=== PATIENT | male | born 1950 | race Caucasian/White ===

== ENCOUNTER 2016-12-05 21:07 | Inpatient (IN) | payer OTHER ==
[~2016-12-05] VITALS: Ht 175.3 cm; Wt 102.8 kg
[~2016-12-05 21:07] MED LIST: ARTHROTEC 501 TABLET PO; CRESTOR10 MG PO; FLEXERIL10 MG PO; FLONASE16 G1 BOTH NARES; HYDROCODON-ACE1 EAC7 PO; LIDODERM 5% P1 PATCH TD; NAPROSYN500 MG PO; PREVACID30 MG PO
[2016-12-05 21:22] LABS: BASOPHIL COUNT 0.1 K/uL (0-0.1); EOSINOPHIL (%) 3.6 % (0-5); EOSINOPHIL COUNT 0.4 K/uL (0-0.3); HEMATOCRIT 47.4 % (38.0-50.0); IMMATURE GRANULOCYTE (%) 0.3 % (0.0-0.7); LYMPHOCYTE COUNT 4.3 K/uL (1.0-2.8); MCH 29.1 PG (29.0-34.0); MCHC 32.9 G/DL (30.0-36.0); MCV 88.3 FL (86-99); MEAN PLAT.VOLUME 9.5 uM^3 (9.0-12.4); MONOCYTE (%) 9.4 % (3-12); MONOCYTE COUNT 1.1 K/uL (0-0.8); NEUTROPHIL (%) 50.3 % (45-76); PLATELET COUNT 285 K/uL (156-360); RBC DIS.WIDTH-CV 13.4 % (11.8-14.6); RBC DIS.WIDTH-SD 43.3 % (39-53); RED BLOOD COUNT 5.37 M/uL (4.00-5.50)
[2016-12-05 21:32] LABS: AMYLASE 62 IU/L (1-118); CHLORIDE 105 mEq/L (99-109); POTASSIUM 3.9 mEq/L (3.7-5.4); SODIUM 141 mEq/L (136-147)
[2016-12-05 21:34] LABS: GLUCOSE 140 mg/dL (70-99)
[2016-12-05 21:35] LABS: ANION GAP 11 MEQ/L (2-14)
[2016-12-05 21:37] LABS: GFR ESTIMATE (CALCULATED) > 59 mL/min/; INTER. NORMALIZED RATIO 1.1; PROTHROMBIN TIME 10.8 (9.2-11.2); PTT 26.7 (25-32); SERUM ETHYL ALCOHOL < 10 mg/dL
[2016-12-05 21:38] LABS: UREA NITROGEN (BUN) 19 mg/dL (9-23)
[2016-12-05 21:40] LABS: LIPASE 34 U/L (1.0-51.0)
[2016-12-05 21:44] LABS: TROP-I INTERPRETATION NEGATIVE; TROPONIN-I < 0.01 ng/mL (0.0-0.30)
[2016-12-05 22:59] LABS: BASE EXCESS -2.9 mEq/L (-3 to +3); BICARBONATE 22.6 mEq/L (22-26); CARBOXY HGB 1.7 % (0-5); METHEMOGLOBIN 1.2 % (0-1.5); PCO2 41 mm Hg (35-45); PO2 56 mm Hg (80-100); pH 7.35 (7.35-7.45)
[2016-12-05 23:01] LABS: COMMENTS - BLOOD GASES +C; SITE CATH LAB
[2016-12-05 23:46] VITALS: BP 119/82
[2016-12-06] VITALS (12 sets, daily range): BP systolic 89–168; BP diastolic 52–120
[2016-12-06 00:52] LABS: METH RESISTANT S AUREUS PCR NEGATIVE (NEGATIVE)
[2016-12-06 00:58] LABS: PROBE CHECK PASS; SPECIMEN PROCESSING CONTROL PASS
[2016-12-06 05:26] LABS: BASOPHIL COUNT 0.1 K/uL (0-0.1); EOSINOPHIL (%) 0.1 % (0-5); HEMATOCRIT 46.1 % (38.0-50.0); IMMATURE GRANULOCYTE (%) 0.4 % (0.0-0.7); IMMATURE GRANULOCYTE COUNT 0.1 K/uL; INSTRUMENT ABS NEUTROPHIL CT 12.3 K/uL; LYMPHOCYTE COUNT 1.3 K/uL (1.0-2.8); MCHC 34.3 G/DL (30.0-36.0); MCV 87.5 FL (86-99); MEAN PLAT.VOLUME 9.8 uM^3 (9.0-12.4); MONOCYTE (%) 6.3 % (3-12); MONOCYTE COUNT 0.9 K/uL (0-0.8); NEUTROPHIL COUNT 12.3 K/uL (1.8-6.4); PLATELET COUNT 301 K/uL (156-360); RBC DIS.WIDTH-CV 13.7 % (11.8-14.6); RBC DIS.WIDTH-SD 43.7 % (39-53); RED BLOOD COUNT 5.27 M/uL (4.00-5.50); WHITE BLOOD COUNT 14.7 K/uL (4.1-10.2)
[2016-12-06 05:49] LABS: ALKALINE PHOSPHATASE 65 IU/L (3-129); ANION GAP 11 MEQ/L (2-14); CHLORIDE 103 MEQ/L (99-109); DIRECT BILIRUBIN 0.1 mg/dL (0.0-0.3); GFR ESTIMATE (CALCULATED) > 59 mL/min/; GLUCOSE 164 mg/dL (70-99); HDL CHOLESTEROL 43 MG/DL (Desirable>=40); LDL CHOLESTEROL 109 mg/dL (Desirable<100); NON-HDL CHOLESTEROL 134 mg/dL (Desirable<160); POTASSIUM 4.1 MEQ/L (3.7-5.4); SAMPLE HEMOLYSIS CHECK 0; SAMPLE ICTERIC CHECK 0; SAMPLE LIPEMIA CHECK 0; SODIUM 138 MEQ/L (136-147); TOTAL BILIRUBIN 0.6 MG/DL (0.0-1.0); TOTAL CHOLESTEROL 177 mg/dL (Desirable<200); TRIGLYCERIDES 125 MG/DL (Normal: <150); UREA NITROGEN (BUN) 19 mg/dL (9-23)
[2016-12-06 05:59] LABS: TROP-I INTERPRETATION POSITIVE
[2016-12-06 07:05] LABS: Estimated Average Glucose 126 mg/dL (70-123)
[2016-12-06 11:48] LABS: BASE EXCESS 0 mEq/L (-3 to +3); BICARBONATE 23.9 mEq/L (22-26); CARBOXY HGB 1.6 % (0-5); COMMENTS - BLOOD GASES AC+; METHEMOGLOBIN 1.1 % (0-1.5); O2 FLOW 15 L/MIN; PCO2 36 mm Hg (35-45); PO2 75 mm Hg (80-100); SITE LR; pH 7.43 (7.35-7.45)
[2016-12-06 11:49] LABS: DEVICE HFNC; TOTAL RESP RATE 20 resp/min
[2016-12-06 13:23] LABS: TROP-I INTERPRETATION POSITIVE; TROPONIN-I 105.31 ng/mL (0.0-0.30)
[2016-12-07] VITALS (15 sets, daily range): BP systolic 85–104; BP diastolic 53–76
[2016-12-07 05:52] LABS: HEMATOCRIT 44.3 % (38.0-50.0); MCH 29.4 PG (29.0-34.0); MCHC 34.1 G/DL (30.0-36.0); MCV 86.4 FL (86-99); PLATELET COUNT 281 K/uL (156-360); RBC DIS.WIDTH-CV 13.5 % (11.8-14.6); RBC DIS.WIDTH-SD 42.8 % (39-53); RED BLOOD COUNT 5.13 M/uL (4.00-5.50)
[2016-12-07 06:10] LABS: INTER. NORMALIZED RATIO 1.1; PROTHROMBIN TIME 11.5 (9.2-11.2)
[2016-12-07 06:40] LABS: ANION GAP 10 MEQ/L (2-14); CHLORIDE 99 MEQ/L (99-109); GFR ESTIMATE (CALCULATED) > 59 mL/min/; POTASSIUM 3.9 MEQ/L (3.7-5.4); SAMPLE HEMOLYSIS CHECK 0; SAMPLE ICTERIC CHECK 0; SAMPLE LIPEMIA CHECK 0; SODIUM 136 MEQ/L (136-147); UREA NITROGEN (BUN) 22 mg/dL (9-23)
[2016-12-07 06:44] LABS: TROP-I INTERPRETATION POSITIVE; TROPONIN-I 78.63 ng/mL (0.0-0.30)
[2016-12-07 06:53] LABS: GLUCOSE 115 mg/dL (70-99)
[2016-12-07 08:49] LABS: POINT-OF-CARE METER ID UU13113748
[2016-12-07] MEDS ORDERED: MOBIC7.5 MG PO (15:43)
[2016-12-07] MEDS ORDERED: COZAAR100 MG PO (15:43)
[2016-12-07] MEDS ORDERED: LO-DOSE ASPIRIN81 M2 PO (15:43)
[2016-12-07] MEDS ORDERED: METRO GEL 1%60 GM TP (15:44)
[2016-12-07] MEDS ORDERED: TRAMADOL HCL50 MG PO (15:44)
[2016-12-08] VITALS (11 sets, daily range): BP systolic 87–113; BP diastolic 49–75
[2016-12-08 05:27] LABS: HEMATOCRIT 43.2 % (38.0-50.0); MCH 29.2 PG (29.0-34.0); MCV 85.9 FL (86-99); MEAN PLAT.VOLUME 9.6 uM^3 (9.0-12.4); PLATELET COUNT 247 K/uL (156-360); RBC DIS.WIDTH-CV 13.6 % (11.8-14.6); RED BLOOD COUNT 5.03 M/uL (4.00-5.50); WHITE BLOOD COUNT 12.9 K/uL (4.1-10.2)
[2016-12-08 05:34] LABS: INTER. NORMALIZED RATIO 1.3; PROTHROMBIN TIME 12.9 (9.2-11.2)
[2016-12-08 05:45] LABS: ANION GAP 11 MEQ/L (2-14); CHLORIDE 97 MEQ/L (99-109); GFR ESTIMATE (CALCULATED) > 59 mL/min/; GLUCOSE 112 mg/dL (70-99); MAGNESIUM 1.8 mg/dl (1.3-2.7); POTASSIUM 3.7 MEQ/L (3.7-5.4); SAMPLE HEMOLYSIS CHECK 0; SAMPLE ICTERIC CHECK 0; SAMPLE LIPEMIA CHECK 0; SODIUM 135 MEQ/L (136-147); UREA NITROGEN (BUN) 30 mg/dL (9-23)
[2016-12-09 05:00] VITALS: BP 108/73
[2016-12-09 05:54] LABS: MCH 30.2 PG (29.0-34.0); MCHC 34.8 G/DL (30.0-36.0); MCV 86.8 FL (86-99); MEAN PLAT.VOLUME 9.7 uM^3 (9.0-12.4); PLATELET COUNT 238 K/uL (156-360); RBC DIS.WIDTH-CV 13.7 % (11.8-14.6); RBC DIS.WIDTH-SD 43.5 % (39-53); RED BLOOD COUNT 4.84 M/uL (4.00-5.50); WHITE BLOOD COUNT 12.1 K/uL (4.1-10.2)
[2016-12-09 06:17] LABS: ANION GAP 13 MEQ/L (2-14); CHLORIDE 96 MEQ/L (99-109); GFR ESTIMATE (CALCULATED) > 59 mL/min/; GLUCOSE 105 mg/dL (70-99); SAMPLE HEMOLYSIS CHECK 0; SAMPLE ICTERIC CHECK 0; SAMPLE LIPEMIA CHECK 0; SODIUM 135 MEQ/L (136-147); UREA NITROGEN (BUN) 31 mg/dL (9-23)
[2016-12-09 06:20] LABS: INTER. NORMALIZED RATIO 1.9
[2016-12-09 06:37] LABS: PROTHROMBIN TIME 19.6 (9.2-11.2)
[2016-12-09] MEDS ORDERED: WARFARIN SODIUM4 MG PO ×2 (10:37→11:07)
[2016-12-09] MEDS ORDERED: FUROSEMIDE20 MG PO ×2 (10:37→11:08)
[2016-12-09] MEDS ORDERED: LISINOPRIL2.5 MG PO ×2 (10:37→11:08)
[2016-12-09] MEDS ORDERED: POLYETHYLENE GL17 GM PO ×2 (10:37→11:08)
[2016-12-09] MEDS ORDERED: CARVEDILOL3.125 MG PO ×2 (10:37→11:08)
[2016-12-09] MEDS ORDERED: ATORVASTATIN CA40 MG PO ×2 (10:37→11:08)
[2016-12-09] MEDS ORDERED: CLOPIDOGREL75 MG PO ×2 (10:37→11:07)
== END 2016-12-09 12:11 | disposition home or self-care (01) | DRG 246 ==
LOC: EME 21:07 → CATH 21:33 → 4WEST 23:30
PROVIDERS: Emergency Medicine; Internal Medicine; Internal Medicine Cardiovascular Disease
PROC: B2111ZZ Fluoroscopy of Multiple Coronary Arteries using Low Osmolar Contrast (ICD-10-PCS; principal; 2016-12-05)
PROC: 4A023N7 Measurement of Cardiac Sampling and Pressure, Left Heart, Percutaneous Approach (ICD-10-PCS; principal; 2016-12-05)
PROC: 027035Z Dilation of Coronary Artery, One Artery with Two Drug-eluting Intraluminal Devices, Percutaneous Approach (ICD-10-PCS; principal; 2016-12-05)
PROC: 02703ZZ Dilation of Coronary Artery, One Artery, Percutaneous Approach (ICD-10-PCS; principal; 2016-12-05)
DX: I21.09 ST elevation (STEMI) myocardial infarction involving other coronary artery of anterior wall (principal); J96.01 Acute respiratory failure with hypoxia; I50.21 Acute systolic (congestive) heart failure; I25.82 Chronic total occlusion of coronary artery; D72.829 Elevated white blood cell count, unspecified; E11.9 Type 2 diabetes mellitus without complications; I11.0 Hypertensive heart disease with heart failure; I25.10 Atherosclerotic heart disease of native coronary artery without angina pectoris; E78.5 Hyperlipidemia, unspecified; I25.5 Ischemic cardiomyopathy; K21.9 Gastro-esophageal reflux disease without esophagitis; Z79.82 Long term (current) use of aspirin; Z87.891 Personal history of nicotine dependence; M62.830 Muscle spasm of back
CPT/HCPCS: 36600; 71010; 80048; 80061; 80076; 81003; 82150; 82803; 82948; 83036; 83690; 83735; 84484; 85025; 85027; 85347; 85610; 85730; 86900; 86901; 87641; 93005; 93306; 94799; 99281; 99285; C1725; C1769; C1874; C1887; C1894; G0480; J1644; J1650; J1885; J1940; J2250; J3010; J3246